=== PATIENT | female | born 1955 | race Caucasian/White ===

== ENCOUNTER → 2023-02-28 | Outpatient (CLI) | payer MEDICARE ==
[2023-02-28 12:28] LABS: CREATININE 1.3 mg/dL (0.5-1.5)
== END | disposition home or self-care (01) ==
LOC: LAB 10:10
PROVIDERS: ATTEND Internal Medicine Cardiovascular Disease
DX: I48.0 Paroxysmal atrial fibrillation (principal)
CPT/HCPCS: 36415; 82565; 84520

== ENCOUNTER → 2023-03-03 | Outpatient (CLI) | payer MEDICARE ==
[~2023-03-03] MED LIST: IOHEXOL 350 MG/ML 100ML INFUS..BTL IV ONE
== END | disposition home or self-care (01) ==
LOC: RAH 10:44
PROVIDERS: ATTEND Internal Medicine Cardiovascular Disease
DX: I48.0 Paroxysmal atrial fibrillation (principal)
CPT/HCPCS: 71275; Q9967

== ENCOUNTER 2023-03-10 05:54 | Observation (INO) | payer MEDICARE ==
[2023-03-08 13:06] LABS: BASOPHILS # (AUTO) 0.04 K/uL (0.00-0.20); BASOPHILS % (AUTO) 0.8 % (0.0-5.0); HEMATOCRIT 35.9 % (36-48); IMMATURE GRANULOCYTE ABSOLUTE 0.01 K/uL (0-1); LYMPHOCYTES # (AUTO) 0.7 K/uL (1.0-4.8); LYMPHOCYTES % (AUTO) 14.4 % (21.0-51.0); MEAN CORPUSCULAR HEMOGLOBIN 25.3 pg (27.0-33.0); MEAN CORPUSCULAR HGB CONC 30.9 g/dL (32.0-36.0); MONOCYTES # (AUTO) 0.4 K/uL (0.1-1.0); NEUTROPHILS # (AUTO) 3.9 K/uL (1.8-7.7); NEUTROPHILS % (AUTO) 77.6 % (40.0-77.0); PLATELET COUNT (AUTO) 191 K/uL (130-400); RED BLOOD CELL COUNT(AUTO) 4.38 MIL/uL (4.00-5.50); RED CELL DISTRIBUTION WIDTH 18.5 % (11.0-15.5)
[2023-03-08 13:09] VITALS: BP 155/79; PULSE 64; RESP 18
[2023-03-08 13:15] LABS: CREATININE 1.1 mg/dL (0.5-1.5); POTASSIUM 4.2 mmol/L (3.5-5.1)
[2023-03-08 13:16] LABS: INR < 0.93 (0.85-1.15); PROTHROMBIN TIME 10.7 SEC (9.6-11.6)
[~2023-03-10] VITALS: Ht 162.6 cm; Wt 82.5 kg
[2023-03-10] VITALS (22 sets, daily range): BP systolic 97–152; BP diastolic 42–76; PULSE 62–77; RESP 12–18; O2SAT 98
[~2023-03-10 05:54] MED LIST changes: +AEC81 PO; +ATOR20TA65 PO; +CETI10TA57 PO; +DRON400T7 PO; +FOLI200T12 PO; -IOHEXOL 350 MG/ML 100ML INFUS..BTL IV ONE; +ISOS30TA92 PO; +LEVO100C4 PO; +LOSA25TA41 PO; +MAGN400T40 PO; +METF-444 PO; +OMEG1CAP25 PO; +OMEP20TA20 PO; +RIVA20TA PO
[2023-03-10] MEDS ORDERED: 0.9%NACL 1000ML 1,000 ML IV ONE (06:47)
[2023-03-10] MEDS ORDERED: ROCURONIUM 10MG/1ML SYR 10 MG/ML ML ONE (07:15)
[2023-03-10] MEDS ORDERED: MIDAZOLAM HCL 1 MG/ML 2ML VIAL ONE (07:15)
[2023-03-10] MEDS ORDERED: PROPOFOL 10 MG/ML 20ML VIAL IV ONE (07:15)
[2023-03-10] MEDS ORDERED: FENTANYL CITRATE PF 50 MCG/1 ML 2ML VIAL ONE ×3 (07:16→11:08)
[2023-03-10] MEDS ORDERED: HEPARIN 10,000 UNIT/10ML (1,000 UNIT/ML) VIAL ONE ×2 (07:17→08:54)
[2023-03-10] MEDS ORDERED: LIDOCAINE HCL 400MG/20ML VIAL ONE (07:17)
[2023-03-10] MEDS ORDERED: PHENYLEPHRINE HCL 10 MG/ML 1ML VIAL IV ONE (07:59)
[2023-03-10] MEDS ORDERED: EPHEDRINE SULFATE 50 MG/ML AMPULE ONE (08:00)
[2023-03-10] MEDS ORDERED: ROCURONIUM BROMIDE 10MG/1ML 5ML VL ONE (08:23)
[2023-03-10] MEDS ORDERED: ISOPROTERENOL HCL 0.2 MG/ML AMP/VIAL/BAG ONE (10:27)
[2023-03-10] MEDS ORDERED: PROTAMINE SULFATE 10 MG/ML 25ML VIAL IV ONE (10:38)
[2023-03-10] MEDS ORDERED: GLYCOPYRROLATE 0.2 MG/ML 5 ML VIAL ONE (11:08)
[2023-03-10] MEDS ORDERED: NEOSTIGMINE 5MG/5ML SYR IV ONE (11:09)
[2023-03-10] MEDS ORDERED: LABETALOL 20MG SYG IV ONE (11:18)
[2023-03-10] MEDS ORDERED: SUGAMMADEX SODIUM 200 MG/2 ML VIAL IV ONE (11:29)
[2023-03-10] MEDS ORDERED: PANTOPRAZOLE 40 MG TAB DR PO ONE (13:00)
[2023-03-10] MEDS: SUCRALFATE 1 GM TABLET PO SCH ×2 (15:12→19:58)
[2023-03-10] MEDS: ACETAMINOPHEN 325 MG TAB PO PRN ×2 (15:12→19:58)
[2023-03-10] MEDS ORDERED: OMEGA PO SCH (21:00)
[2023-03-10] MEDS ORDERED: FISH OIL PO SCH (21:00)
[2023-03-10] MEDS ORDERED: NON-FORMULARY MEDICATION 1 EACH (Magnesium Oxide (Magnesium) 400 MG) PO SCH (21:00)
[2023-03-10] MEDS ORDERED: DHA PO SCH (21:00)
[2023-03-10] MEDS ORDERED: RIVAROXABAN 20 MG TABLET PO SCH (21:00)
[2023-03-10] MEDS ORDERED: EPA PO SCH (21:00)
[2023-03-10] MEDS ORDERED: ATORVASTATIN 20 MG TABLET PO SCH (21:00)
[2023-03-11] MEDS: SUCRALFATE 1 GM TABLET PO SCH ×2 (01:51→06:34)
[2023-03-11 04:28] VITALS: BP 150/59; PULSE 74; RESP 18
[2023-03-11] MEDS ORDERED: LEVOTHYROXINE 100 MCG TABLET PO SCH (06:30)
[2023-03-11] MEDS ORDERED: NON-FORMULARY MEDICATION 1 EACH (Levothyroxine Sodium (Levothyroxine) 100 MCG) PO SCH (07:30)
[2023-03-11 07:53] VITALS: O2SAT 98
[2023-03-11 08:00] VITALS: BP 152/52; PULSE 72; RESP 18
[2023-03-11] MEDS ORDERED: ISOSORBIDE MONO 30MG SR TAB PO SCH (09:00)
[2023-03-11] MEDS ORDERED: NON-FORMULARY MEDICATION 1 EACH (Omeprazole 20 MG) PO SCH (09:00)
[2023-03-11] MEDS ORDERED: MAGNESIUM OXIDE 400 MG TABLET PO SCH (09:00)
[2023-03-11] MEDS ORDERED: ASPIRIN 81 MG EC TAB PO SCH (09:00)
[2023-03-11] MEDS ORDERED: CETIRIZINE HCL 5 MG TABLET PO SCH (09:00)
[2023-03-11] MEDS ORDERED: LOSARTAN 25 MG TABLET PO SCH (09:00)
[2023-03-11] MEDS ORDERED: NON-FORMULARY MEDICATION 1 EACH (Cetirizine HCl 10 MG) PO SCH (09:00)
[2023-03-11] MEDS ORDERED: PANTOPRAZOLE 40 MG TAB DR PO SCH ×2 (09:00)
[2023-03-11] MEDS ORDERED: MULTIVIT MINERALS PO SCH (09:00)
[2023-03-11] MEDS ORDERED: FOLIC ACID PO SCH (09:00)
[2023-03-11] MEDS ORDERED: METFORMIN HCL 500 MG TABLET PO SCH (09:00)
[2023-03-11] MEDS ORDERED: SUCR1ORA15 PO (09:20)
[2023-03-11] MEDS ORDERED: PANT40TA55 PO (09:20)
== END 2023-03-11 10:38 | disposition home or self-care (01) ==
LOC: DAH 05:54 → DAHIP 05:55 → DAH 05:55 → DAHIP 08:55 → UNDOADMOB 08:55 → 2AH 11:53
PROVIDERS: ADMIT Internal Medicine Cardiovascular Disease; ATTEND Internal Medicine Cardiovascular Disease
DX: I48.0 Paroxysmal atrial fibrillation (principal); I25.10 Atherosclerotic heart disease of native coronary artery without angina pectoris; I10 Essential (primary) hypertension; E11.9 Type 2 diabetes mellitus without complications; Z79.899 Other long term (current) drug therapy
CPT/HCPCS: 80048; 85025; 85610; 85730; 36415; 93005; 93623; 93656; 85347 ×4; 82948 ×4; A4344; C1894 ×3; C1732 ×2; C1731; A4649 ×2; C1766; G0378 ×24; J3010 ×3; J3490 ×5; J2710; J7030; J2720; J1644 ×3; J2250; J2704; J2371; A4215; A4223; A4222; A4221; A4663

== ENCOUNTER 2023-03-13 22:45 | Observation (INO) | payer MEDICARE ==
[~2023-03-13] VITALS: Ht 170.2 cm; Wt 81.2 kg
[~2023-03-13 22:45] MED LIST changes: -DRON400T7 PO; +PANT40TA55 PO; +SUCR1ORA15 PO
[2023-03-13 23:18] LABS: BASOPHILS # (AUTO) 0.04 K/uL (0.00-0.20); BASOPHILS % (AUTO) 1.1 % (0.0-5.0); EOSINOPHILS # (AUTO) 0.03 K/uL (0.00-0.70); EOSINOPHILS % (AUTO) 0.8 % (0.0-8.0); HEMATOCRIT 34.2 % (36-48); IMMATURE GRANULOCYTE ABSOLUTE 0.01 K/uL (0-1); LYMPHOCYTES # (AUTO) 0.8 K/uL (1.0-4.8); LYMPHOCYTES % (AUTO) 21.3 % (21.0-51.0); MEAN CORPUSCULAR HEMOGLOBIN 25.1 pg (27.0-33.0); MONOCYTES # (AUTO) 0.4 K/uL (0.1-1.0); MONOCYTES % (AUTO) 11.3 % (3.0-13.0); NEUTROPHILS # (AUTO) 2.4 K/uL (1.8-7.7); NEUTROPHILS % (AUTO) 65.2 % (40.0-77.0); PLATELET COUNT (AUTO) 182 K/uL (130-400); RED BLOOD CELL COUNT(AUTO) 4.22 MIL/uL (4.00-5.50); RED CELL DISTRIBUTION WIDTH 18.7 % (11.0-15.5); WHITE BLOOD COUNT (AUTO) 3.7 K/uL (4.8-10.8)
[2023-03-13 23:29] LABS: CREATININE 1.2 mg/dL (0.5-1.5); POTASSIUM 3.6 mmol/L (3.5-5.1)
[2023-03-13 23:40] LABS: ALBUMIN 2.9 g/dL (3.5-5.0); BILIRUBIN,TOTAL 0.4 mg/dL (0.2-1.0); MAGNESIUM 1.6 mg/dL (1.80-2.40); TOTAL PROTEIN, SERUM 6.8 g/dL (6.0-8.3)
[2023-03-13 23:40] LABS: APPEARANCE,URINE CLEAR (CLEAR); BILIRUBIN,URINE NEGATIVE (NEGATIVE); COLOR,URINE YELLOW (YELLOW); GLUCOSE, URINE (UA) NEGATIVE (NEGATIVE); KETONES,URINE NEGATIVE (NEGATIVE); LEUKOCYTE ESTERASE ,URINE 25 Leu/uL (NEGATIVE); NITRATE,URINE NEGATIVE (NEGATIVE); OCCULT BLOOD,URINE NEGATIVE (NEGATIVE); PH,URINE 6.5 (5.0-8.0); PROTEIN,URINE 10 mg/dL (NEGATIVE); UROBILINOGEN,URINE 0.2 mg/dL (0.2-1.0)
[2023-03-13 23:42] LABS: ADD UA MICROSCOPIC YES
[2023-03-13 23:44] LABS: MUCUS,URINE RARE LPF (None Seen); RBC,URINE 0-1 /HPF (0-1); SQUAMOUS EPITHELIAL CELL,UR RARE /HPF (0-2)
[2023-03-13 23:47] LABS: AMPHET/METH SCREEN,URINE NEGATIVE (NEGATIVE); BARBITURATE SCREEN, URINE NEGATIVE (NEGATIVE); BENZODIAZEPINES SCREEN,URINE NEGATIVE (NEGATIVE); CANNABINOID SCREEN,URINE NEGATIVE (NEGATIVE); COCAINE SCREEN,URINE NEGATIVE (NEGATIVE); OPIATE SCREEN,URINE NEGATIVE (NEGATIVE); PHENCYCLIDINE SCREEN,URINE NEGATIVE (NEGATIVE)
[2023-03-13 23:58] LABS: B-TYPE NATRIURETIC PEPTIDE 357 pg/mL (0-100)
[2023-03-14] VITALS (15 sets, daily range): BP systolic 113–168; BP diastolic 42–113; PULSE 42–91; RESP 16–18; O2SAT 97–98
[2023-03-14] MEDS ORDERED: ACETAMINOPHEN 650 MG SUPPOSITORY RC PRN (01:00)
[2023-03-14] MEDS ORDERED: LABETALOL 20MG SYG IV PRN (01:00)
[2023-03-14] MEDS ORDERED: MAGNESIUM 2GM PREMIX 50ML 50 ML IV SCH (01:00)
[2023-03-14] MEDS ORDERED: ACETAMINOPHEN 325 MG TAB PO PRN (01:00)
[2023-03-14] MEDS ORDERED: HYDROCODONE/ACETAMINOPHEN 5/325 MG TAB PO PRN (01:00)
[2023-03-14] MEDS ORDERED: DOCUSATE SODIUM 100 MG CAP PO PRN (01:00)
[2023-03-14] MEDS ORDERED: ALBUTEROL 0.083% 2.5 MG/3 ML INH IH PRN (01:00)
[2023-03-14] MEDS: LACTATED RINGERS 1000ML 1,000 ML IV SCH ×2 (01:08→17:04)
[2023-03-14] MEDS ORDERED: LEVOTHYROXINE 100 MCG TABLET PO SCH (06:30)
[2023-03-14] MEDS: INSULIN HUMULIN R 100 UNIT/ML 3ML SQ SCH ×3 (06:45→16:30)
[2023-03-14] MEDS ORDERED: NON-FORMULARY MEDICATION 1 EACH (Levothyroxine Sodium (Levothyroxine) 100 MCG) PO SCH (07:30)
[2023-03-14 08:37] LABS: CREATININE 1.1 mg/dL (0.5-1.5); MAGNESIUM 2.1 mg/dL (1.80-2.40); THYROID STIMULATING HORMONE 0.04 uIU/mL (0.36-3.74)
[2023-03-14] MEDS ORDERED: PANTOPRAZOLE 40 MG TAB DR PO SCH (09:00)
[2023-03-14] MEDS ORDERED: DRON400T7 PO (17:12)
[2023-03-14] MEDS ORDERED: METO25 PO (17:16)
[2023-03-14] MEDS ORDERED: FUROSEMIDE 20MG VIAL IV ONE (17:30)
[2023-03-14] MEDS ORDERED: ENOXAPARIN SODIUM 80 MG/0.8 ML SQ ONE (21:00)
[2023-03-14] MEDS ORDERED: ATORVASTATIN 20 MG TABLET PO SCH (21:00)
[2023-03-15] MEDS ORDERED: ASPIRIN 81 MG EC TAB PO SCH (09:00)
[2023-03-15] MEDS ORDERED: ISOSORBIDE MONO 30MG SR TAB PO SCH (09:00)
[2023-03-15] MEDS ORDERED: LOSARTAN 25 MG TABLET PO SCH (09:00)
[2023-03-15] MEDS ORDERED: PANTOPRAZOLE 40 MG TAB DR PO SCH (09:00)
== END 2023-03-14 18:00 | disposition home or self-care (01) ==
LOC: EDH 22:45 → EDHIP 03-14 00:42 → 2DH 03-14 02:00
PROVIDERS: ADMIT Internal Medicine; ATTEND Internal Medicine
DX: I11.0 Hypertensive heart disease with heart failure (principal); I50.33 Acute on chronic diastolic (congestive) heart failure; I21.4 Non-ST elevation (NSTEMI) myocardial infarction; I48.0 Paroxysmal atrial fibrillation; E83.42 Hypomagnesemia; E11.51 Type 2 diabetes mellitus with diabetic peripheral angiopathy without gangrene; E03.9 Hypothyroidism, unspecified; C34.90 Malignant neoplasm of unspecified part of unspecified bronchus or lung; E78.00 Pure hypercholesterolemia, unspecified; I25.10 Atherosclerotic heart disease of native coronary artery without angina pectoris; I25.2 Old myocardial infarction; Z85.118 Personal history of other malignant neoplasm of bronchus and lung; Z90.49 Acquired absence of other specified parts of digestive tract; Z87.891 Personal history of nicotine dependence; Z79.01 Long term (current) use of anticoagulants; Z79.899 Other long term (current) drug therapy; Z79.4 Long term (current) use of insulin; Z79.82 Long term (current) use of aspirin; Z79.84 Long term (current) use of oral hypoglycemic drugs; Z98.890 Other specified postprocedural states
CPT/HCPCS: 81001; 82550 ×4; 83735 ×2; 83874 ×4; 84484 ×4; 80053; 83880; 80305; 85025; 36415 ×2; 71045; 99291; 93005 ×2; 96365; 96375; 84443; 80048; 82948 ×3; 84439; 84481; J1815; G0378 ×17; J3475; J1940